=== PATIENT | female | born 1945 | race Caucasian/White ===

== ENCOUNTER 2019-01-28 16:40 | Outpatient (REF) | payer MEDICARE, OTHER, SELFPAY | END 2019-01-28 17:00 | LOC: LBN 16:40 | PROVIDERS: PCP Internal Medicine; Visit Provider Obstetrics & Gynecology Gynecology | DX: R30.0 Dysuria (principal) | CPT/HCPCS: 87077; 87086; 87186 ==

== ENCOUNTER 2021-08-09 02:15 | Outpatient (CLI) | payer MEDICARE, SELFPAY ==
[2021-08-09 11:08] LABS: Source Nasal/Nares
[2021-08-09 15:49] LABS: COVID-19 PCR Negative (Negative)
== END 2021-08-09 02:16 | disposition home or self-care (01) ==
LOC: LBO 02:15
PROVIDERS: PCP Internal Medicine; Visit Provider Ophthalmology
DX: Z20.822 Contact with and (suspected) exposure to COVID-19 (principal); Z01.818 Encounter for other preprocedural examination
CPT/HCPCS: 87635

== ENCOUNTER 2021-08-11 08:12 | Day surgery (SDC) | payer MEDICARE, SELFPAY ==
[2021-08-11] MEDS: Tropicam./Phenyleph. (1/2.5%) 5 ML BTL OD ×3 (08:39→08:52)
[2021-08-11 08:45] VITALS: BP 172/92; PULSE 63; RESP 16; TEMP 36.2; O2SAT 98
--- NOTE | 2021-08-11 09:20 | W.ANESPRE ---
General Info Date of Service Date Performed: 08/11/21 Height: 5 ft 3 in Weight: 66.2 kg Body Mass Index (BMI): 25.8 Surgical Procedure: Operation Date: 08/11/21 10:40 Proposed Procedures Side Surgeon p Cataract Extraction with IOL Implant Right Flash Gomez MD Meds Allergies and Home Medications Allergies Allergy/AdvReac Type Severity Reaction Status Date / Time Iodine and Iodide Containing Allergy Severe Verified 08/11/21 08:43 Produc latex AdvReac Mild Verified 08/11/21 08:43 Home Medication Medication Instructions Recorded citalopram 20 mg PO DAILY tab-cap 07/25/17 levothyroxine [Synthroid] 50 mcg PO DAILY tab-cap 07/25/17 nitrofurantoin macrocrystal 100 mg 100 mg PO DAILY tab-cap 01/01/19 capsule Current Visit Medications: Current Medications Generic Name Dose Route Start Last Admin Trade Name Freq PRN Reason Stop Dose Admin Acetaminophen 1,000 mg 08/11/21 06:00 Acetaminophen 500 Mg Tab PO Q4H PRN PRN Miscellaneous Medication 0 ml 08/11/21 06:00 Prednisolone 1%, Moxifloxacin 0.5%, Nepafenac 0.1% 5ml Btl OD DIRECTED JERRY Miscellaneous Medication 0 ml 08/11/21 06:00 08/11/21 08:52 Tropicam./Phenyleph. (1/2.5%) 5 Ml Btl OD 1 drp DIRECTED JERRY Administration Tetracaine HCl 0 ml 08/11/21 06:00 Tetracaine 0.5% 4 Ml Btl OD DIRECTED JERRY PFSH Active Problems Active Problems: Problem Status Onset Code Cortical cataract of right eye H26.9 Nuclear sclerotic cataract of right eye H25.11 Sensorineural hearing loss of right ear H90.5 Mixed hearing loss of left ear H90.72 Nasal septal spur J34.89 Hx: UTI (urinary tract infection) Z87.440 Prolapse of female pelvic organs N81.9 Urinary incontinence 10/01/17 R32 Sensorineural hearing loss, bilateral 05/27/17 H90.3 Recurrent UTI 10/01/17 N39.0 Chronic dysfunction of both eustachian tubes 05/27/17 H69.83 Abnormal auditory perception of both ears 05/27/17 H93.293 Medical History Medical History Abnormal auditory perception of both ears (05/27/17) Chronic dysfunction of both eustachian tubes (05/27/17) Chronic UTI Depression Hx: UTI (urinary tract infection) Has been on Nitrofurantoin suppression x[place]yrs[place] [facility] [place] for 6mo and stop Nitrofurantoin. Hypothyroid Prolapse of female pelvic organs 01/2018 fitted with #76 ring with support pessary with satisfactory results. 12/2019. Requested referral to [facility]: wants repair of prolapse-hoping it will fix urinary sx. Recurrent UTI (10/01/17) Rx for vaginal Premarin cream per urology Sensorineural hearing loss, bilateral (05/27/17) Urinary incontinence (10/01/17) Overactive bladder/urge. Rx with Mirabergron. 12/2018 symptoms worse 03/2019. [facility] [place]: no incontinence. recommended keeping pessary. Voiding dysfunction difficulty continuing stream. has sensation of. Incomplete emptying. Continent in a.m. with significant urge incontinence by the evening. Surgical History Surgical History Bridges (Incontinence sling) 1996 for stress incontinence. Tobacco Smoking/Tobacco Use Status: Never Alcohol Alcohol Intake: never Substance Use Substance use: Never Substance use type: does not use Prental History History 5 Para Hx # Term Pregnancies 5 Multiple births Hx # Pregnancies Ectopic pregnancies AB induced Hx Number of Living Children AB spontaneous Vital Signs and Lab Results Vital Signs Most Recent Vital Signs in EMR: Most Recent Vital Signs Temp Pulse Resp BP Pulse Ox 36.2 C L 63 16 172/92 H 98 08/11/21 08:45 08/11/21 08:45 08/11/21 08:45 08/11/21 08:45 08/11/21 08:45 Lab Results Blood Type / Crossmatch: No Data to Display Complete Blood Count: No Data to Display Complete Metabolic Panel: No Data to Display Liver Function Panel: No Data to Display Coagulation Panel: No Data to Display Cardiac Panel: No Data to Display Arterial Blood Gas: No Data to Display Venous Blood Gas: No Data to Display Pancreas Panel: No Data to Display Thyroid Panel: No Data to Display Infectious Disease: Coronavirus (COVID-19)(PCR) Negative (Negative) 08/09/21 10:14 08/09/21 Coronavirus 2019 Source Nasal/Nares 08/09/21 10:14 08/09/21 Blood Cultures: No Data to Display Toxicology Panel: No Data to Display Anesthesia Assessment and Plan Anesthesia History Personal History: No History of Anesthesia Complications Family History: No Family History of Anesthesia Complications Exercise Tolerance Exercise Tolerance: Metabolic Equivalents>4 Pertinent Negatives Pertinent Negatives: No Symptoms of GERD Cardiac & Pulmonary Exam Cardiac Exam: Normal S1/S2 Heart Sounds Pulmonary Exam: Clear Bilateral Breath Sounds Airway Exam Known Difficult Airway: No Mallampati Class: 2 Mouth Opening: 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 Patient encouraged to follow up with PCP regarding symptoms. ASA Classification ASA Score: ASA 2 Emergency Case?: No NPO Status NPO Status: NPO Clears >2 hours, Solids >8 hours Anesthesia Plan Resuscitation Status: Full Code Anesthesia Technique: MAC Anesthesia Airway Planned: Natural Airway Pain Management: Surgeon and patient request nerve block Monitors Used: Standard Monitors
[2021-08-11 09:23] VITALS: BMI 25.8
[2021-08-11] MEDS: Tetracaine 0.5% 4 ML BTL OD (10:02)
[2021-08-11] MEDS: Balanced Salt Soln.-PLUS 500 ML BAG (10:03)
[2021-08-11] MEDS: Duovisc Viscoelastic System EACH 1 EACH (10:04)
[2021-08-11] MEDS: Lidocaine 1% Pres-Free 5 ML VIAL (10:04)
[2021-08-11] MEDS: Lidocaine 2% Jelly 6 ML SYR (10:05)
[2021-08-11] MEDS: Povidone-Iodine Ophth 30 ML BTL (10:07)
[2021-08-11 10:24] VITALS: BP 160/87; PULSE 63; RESP 16; TEMP 36.6; O2SAT 96
--- NOTE | 2021-08-11 10:24 | W.PM.DSUDISC ---
Discharge Plan Disposition Patient Disposition: HOME Condition: Good Discharge Details Attending Provider: Flash Gomez Primary Care Provider: Say Mehta Home Meds and New Rx's Prescriptions: No Action citalopram 20 MG tablet 20 mg PO DAILY RF: 0 levothyroxine [Synthroid] 50 MCG tablet 50 mcg PO DAILY RF: 0 nitrofurantoin macrocrystal 100 mg capsule 100 mg PO DAILY RF: 0 Discharge Instructions Stand Alone Forms: Post-op Topical Cataract, Dimple Diggs (DSU) Discharge Orders Discharge Orders: Discharge Order (Routine); Ordered 08/11/21 Ordered By: Flash Gomez DS: Diagnosis Discharge Diagnosis (1) Cortical cataract of right eye: Status: Resolved (2) Nuclear sclerotic cataract of right eye: Status: Resolved
--- NOTE | 2021-08-11 10:25 | ROE_ITS ---
Date of service: 08/11/21 Time of Service: 10:25 Operative Note Operative Note DATE OF PROCEDURE: 08/11/21 PRE-OP DIAGNOSIS: Nuclear cataract, right eye POST-OP DIAGNOSIS: same PROCEDURE: Cataract extraction using phacoemulsification with intraocular lens implant, right eye SURGEON: Flash Gomez ANESTHESIA TYPE: Local By Surgeon and MAC Refer to Anesthesia Record ESTIMATED BLOOD LOSS: 0 PATHOLOGY: none sent COMPLICATIONS: None Patient was transported to: same day Patient's condition: stable Implants: Hernando & Hernando/BRANDON Tecnis [id number] Indications: Progressive visual loss due to cataract, right eye Procedure Description: CATARACT SURGERY OPERATIVE REPORT PREOPERATIVE DIAGNOSIS: 1. Nuclear cataract, right eye 2. Status post myopic LASIK POSTOPERATIVE DIAGNOSIS: Same OPERATION: 1. Cataract extraction using phacoemulsification with posterior chamber intraocular lens implant, right eye. IOL: IOL Retort Furnace Helper/Model: Hernando & Hernando / BRANDON Tecnis [id number] IOL Power: + 24.5 diopters IOL Serial Number: [id number] Optic Diameter: 6.0mm Haptic/Overall Diameter: 13.0mm PHACO INFO: Stephon Rhythm Pharmaceuticalsurion Vision System with OZil and Active Fluidics Cumulative Dispersed Energy (CDE): 5.31 seconds SURGEON: Flash Gomez MD, SAMANTHA ANESTHESIA: Monitored Anesthesia Care (MAC), with local sub-tenon's anesthetic infiltration COMPLICATIONS: None SPECIMENS: None INDICATIONS FOR PROCEDURE: The patient is a 76-year-old lady who has previously undergone myopic LASIK approximately 15 years ago. She has now developed a symptomatic nuclear and cortical cataract of the right eye. The option of cataract surgery was the patient and she wished to proceed. PROCEDURE: The correct surgical eye was identified and marked as the right eye and the pupil was dilated in the preoperative area using mydriatics and cycloplegics. The dilated pupil size was 7.0 mm. She elected to proceed without oral sedation. The patient was brought to the operating room where cardiopulmonary monitoring was instituted and surgical time-out was performed, confirming the correct operative eye and IOL power. Topical anesthesia was administered and ophthalmic povidone-iodine 5% was instilled into the conjunctival fornices. Lidocaine gel was applied to the cornea and the godwin-ocular area was prepped with sterile water and draped in the usual sterile fashion for intraocular surgery, including an aperture drape. The patient has a iodine allergy, in the form of skin rash, severe, with previous skin prep with Betadine. However, she tolerated the topical 5% Betadine applied to the eye. A Tegaderm transparent film dressing was cut in half and used to cover the lashes and lid margins. Care was taken to sequester the lashes and lid margins under the Tegaderm dressing. A lid speculum was placed between the lids of the operative eye and the [employer] operating microscope was maneuvered into position. Kojo scissors were then used to make a conjunctival buttonhole approximately 6mm posterior to the limbus in the inferonasal quadrant. Blunt dissection was carried out to expose bare sclera, and a blunt-tipped sub-tenon?s anesthesia cannula was introduced and passed posteriorly along the globe where non- preserved plain lidocaine was injected into posterior sub-Tenon?s space. A sideport knife was used to make a paracentesis port inferotemporally. Intraocular phenylephrine/lidocaine was injected into the anterior chamber. The anterior chamber was filled with viscoelastic. A 2.4mm keratome knife was used to create a half-thickness groove at the limbus and then to construct a three- plane near-clear corneal tunnel extending 2.0mm into clear cornea superiortemporally. A flap was raised on the anterior capsule and capsulorhexis forceps were used to complete a continuous curvilinear capsulorhexis of 5.5 mm. Balanced salt solution was then used to perform cortical cleaving hydrodissection and nuclear hydrodelineation until the lens could be freely rotated within the capsular bag. The lens nucleus was then disassembled and removed within the capsular bag and iris plane using phacoemulsification. Residual cortical material was removed using the I/A handpiece. The posterior capsule was carefully polished to remove as much residual lens epithelial cells as safely possible. The capsular bag was then inflated and the anterior chamber deepened with viscoelastic. The lens implant described above was inserted into the capsular bag using the BRANDON False Pass Injector. A Kuglen hook was used to dial the IOL into position. Residual viscoelastic was then removed first from posterior to the IOL, then from the anterior chamber using the I/A handpiece. The lens implant was noted to center nicely within the capsular bag. The incisions were stromally hydrated, and the anterior chamber was reformed using BSS. Then 0.5cc of moxifloxacin 1.0mg/ml were injected into the capsular bag and anterior chamber. The incisions were checked with a Weck spear and found to be secure. Several drops of ophthalmic povidone-iodine 5% were then applied to the eye followed by two drops of Imprimis combination prednisolone/moxifloxacin/nepafenac solution. The drapes were removed and a clear plastic protective eye shield was placed over the eye. The patient was then returned to Same Day Surgery in stable condition.
--- NOTE | 2021-08-11 10:45 | W.ANESPOSTOP ---
Postoperative Evaluation Date, Time and Location Date Performed: 08/11/21 Time Performed: 10:25 Patient Location: Day Surgery Unit Vital Signs Most Recent Imported Vital Signs: Most Recent Vital Signs Temp Pulse Resp BP Pulse Ox 36.6 C 63 16 160/87 H 96 08/11/21 10:24 08/11/21 10:24 08/11/21 10:24 08/11/21 10:24 08/11/21 10:24 Pain Score Most Recent Pain Score: Most Recent Pain Score Pain Level 0 08/11/21 10:24 Assessment Mental Status: Awake (Alert & Oriented to Patient Baseline) Airway and Respiratory Function: Patent airway with normal (patient baseline) respiratory exam Cardiovascular Function: Hemodynamically Stable Hydration Status: Adequately Hydrated Nausea & Vomiting: No Nausea or Vomiting Pain: Pt. Denies Any Pain Peripheral Nerve Block: Patient did not receive a nerve block
== END 2021-08-11 10:49 | disposition home or self-care (01) ==
PROVIDERS: PCP Internal Medicine; Visit Provider Ophthalmology
PROC: (CPT 66984; principal; 2021-08-11 10:30)
DX: H25.11 Age-related nuclear cataract, right eye (principal)
CPT/HCPCS: 66984; V2632

== ENCOUNTER 2022-05-28 09:31 | Day surgery (SDC) | payer MEDICARE, SELFPAY ==
--- NOTE | 2022-05-28 08:26 | W.ANESPRE ---
General Info Date of Service Date Performed: 05/28/22 Height: 5 ft 3 in Weight: 66.2 kg Body Mass Index (BMI): 25.8 Surgical Procedure: Operation Date: 05/28/22 12:40 Proposed Procedure Side Surgeon p Cataract Extraction with IOL Implant Left Flash Gomez MD Meds Allergies and Home Medications Allergies Allergy/AdvReac Type Severity Reaction Status Date / Time Iodine and Iodide Containing Allergy Severe pt. states Verified 05/28/22 10:09 Produc massive rash and I couldn't breathe latex AdvReac Mild Skin Rash Verified 05/28/22 10:09 Home Medication Medication Instructions Recorded citalopram 20 mg tablet 20 mg PO DAILY 07/25/17 levothyroxine 50 mcg tablet 50 mcg PO DAILY 07/25/17 (Synthroid) ranitidine HCl 150 mg tablet 20 mg PRN 05/28/22 Current Visit Medications: Current Medications Generic Name Dose Route Start Last Admin Trade Name Freq PRN Reason Stop Dose Admin Acetaminophen 1,000 mg 05/28/22 06:00 Acetaminophen 500 Mg Tab PO Q4H PRN PRN Miscellaneous Medication 0 ml 05/28/22 06:00 Prednisolone 1%, Moxifloxacin 0.5%, Nepafenac 0.1% 5ml Btl OS DIRECTED JERRY Miscellaneous Medication 0 ml 05/28/22 06:00 Tropicam./Phenyleph. (1/2.5%) 5 Ml Btl OS DIRECTED JERRY Tetracaine HCl 0 ml 05/28/22 06:00 Tetracaine 0.5% 4 Ml Btl OS DIRECTED JERRY PFSH Active Problems Active Problems: Problem Status Onset Code Cortical cataract of right eye H26.9 Nuclear sclerotic cataract of right eye H25.11 Sensorineural hearing loss of right ear H90.5 Mixed hearing loss of left ear H90.72 Nasal septal spur J34.89 Hx: UTI (urinary tract infection) Z87.440 Prolapse of female pelvic organs N81.9 Urinary incontinence 10/01/17 R32 Sensorineural hearing loss, bilateral 05/27/17 H90.3 Recurrent UTI 10/01/17 N39.0 Chronic dysfunction of both eustachian tubes 05/27/17 H69.83 Abnormal auditory perception of both ears 05/27/17 H93.293 Medical History Medical History Chronic UTI Depression Hypothyroid Voiding dysfunction difficulty continuing stream. has sensation of. Incomplete emptying. Continent in a.m. with significant urge incontinence by the evening. Surgical History Surgical History Bridges (Incontinence sling) 1996 for stress incontinence. Tobacco Smoking/Tobacco Use Status: Never Alcohol Alcohol Intake: never Substance Use Substance use: Never Substance use type: does not use Prental History History 5 Para Hx # Term Pregnancies 5 Multiple births Hx # Pregnancies Ectopic pregnancies AB induced Hx Number of Living Children AB spontaneous Vital Signs and Lab Results Lab Results Blood Type / Crossmatch: No Data to Display Complete Blood Count: No Data to Display Complete Metabolic Panel: No Data to Display Liver Function Panel: No Data to Display Coagulation Panel: No Data to Display Cardiac Panel: No Data to Display Arterial Blood Gas: No Data to Display Venous Blood Gas: No Data to Display Pancreas Panel: No Data to Display Thyroid Panel: No Data to Display Infectious Disease: No Data to Display Blood Cultures: No Data to Display Toxicology Panel: No Data to Display Anesthesia Assessment and Plan Anesthesia History Personal History: No History of Anesthesia Complications Family History: No Family History of Anesthesia Complications Exercise Tolerance Exercise Tolerance: Metabolic Equivalents>4 Pertinent Negatives Pertinent Negatives: No Symptoms of GERD, No Major Cardiovascular Symptoms or Complaints, No Major Pulmonary Symptoms or Complaints and No History of CVA/TIA Cardiac & Pulmonary Exam Cardiac Exam: Normal S1/S2 Heart Sounds Pulmonary Exam: Clear Bilateral Breath Sounds Implantable Cardiac Device Does patient have a Pacemaker or an ICD?: No Airway Exam Known Difficult Airway: No Mallampati Class: 3 Mouth Opening: 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 Patient encouraged to follow up with PCP regarding symptoms. Permanent dentures ASA Classification ASA Score: ASA 2 Emergency Case?: No NPO Status NPO Status: NPO Clears >2 hours, Solids >8 hours Anesthesia Plan Resuscitation Status: Full Code Anesthesia Technique: MAC Anesthesia Airway Planned: Natural Airway Monitors Used: Standard Monitors
[2022-05-28] MEDS: Tropicam./Phenyleph. (1/2.5%) 5 ML BTL OS ×3 (10:15→10:34)
[2022-05-28 10:17] VITALS: BP 142/87; PULSE 75; RESP 19; TEMP 36; O2SAT 97
[2022-05-28 10:31] VITALS: BMI 25.8
[2022-05-28] MEDS: Tetracaine 0.5% 4 ML BTL OS (11:28)
[2022-05-28] MEDS: Balanced Salt Soln.-PLUS 500 ML BAG (11:29)
[2022-05-28] MEDS: Duovisc Viscoelastic System EACH 1 EACH (11:30)
[2022-05-28] MEDS: Lidocaine 2% Jelly 6 ML SYR (11:31)
[2022-05-28] MEDS: Povidone-Iodine Ophth 30 ML BTL (11:33)
[2022-05-28 11:43] VITALS: BP 151/80; PULSE 66; RESP 16; TEMP 36.3; O2SAT 97
--- NOTE | 2022-05-28 11:44 | W.PM.DSUDISC ---
Discharge Plan Disposition Patient Disposition: HOME Condition: Good Discharge Details Attending Provider: Flash Gomez Primary Care Provider: aSy Mehta Home Meds and New Rx's Prescriptions: No Action citalopram 20 MG tablet 20 mg PO DAILY levothyroxine [Synthroid] 50 MCG tablet 50 mcg PO DAILY ranitidine HCl [Zantac] 150 mg Tablet 20 mg PRN Discharge Instructions Stand Alone Forms: Post-op Topical Cataract, Dimple Diggs (DSU) Discharge Orders Discharge Orders: Discharge Order (Routine); Ordered 05/28/22 Ordered By: Flash Gomez DS: Diagnosis Discharge Diagnosis (1) Cortical cataract of left eye: Status: Resolved (2) Nuclear sclerotic cataract of left eye: Status: Resolved
--- NOTE | 2022-05-28 11:47 | W.PM.OP ---
Date of service: 05/28/22 Time of Service: 11:47 Operative Note Operative Note DATE OF PROCEDURE: 05/28/22 PRE-OP DIAGNOSIS: Nuclear/cortical cataract, left eye POST-OP DIAGNOSIS: same PROCEDURE: Cataract extraction using phacoemulsification with intraocular lens implant, left eye SURGEON: Flash Gomez ANESTHESIA TYPE: Local By Surgeon and MAC Refer to Anesthesia Record PATHOLOGY: none sent COMPLICATIONS: None Patient was transported to: same day Patient's condition: stable Implants: Hernando and Hernando / [employer] Tecnis [id number] Indications: Progressive decreased vision due to cataract, left eye Procedure Description: CATARACT SURGERY OPERATIVE REPORT PREOPERATIVE DIAGNOSIS: 1. Nuclear/cortical cataract, left eye POSTOPERATIVE DIAGNOSIS: Same OPERATION: 1. Cataract extraction using phacoemulsification with posterior chamber intraocular lens implant, left eye. IOL: IOL Machine Set Up Technician/Model: Hernando & Hernando / BRANDON Tecnis [id number] IOL Power: + 24.5 diopters IOL Serial Number: [id number] Optic Diameter: 6.0 mm Haptic/Overall Diameter: 13.0 mm PHACO INFO: StephonOmbudon Vision System with OZil and Active Fluidics Cumulative Dispersed Energy (CDE): 2.95 seconds SURGEON: Flash Gomez MD, SAMANTHA ANESTHESIA: Monitored A [facility] (MAC), with local sub-tenon's anesthetic infiltration COMPLICATIONS: None SPECIMENS: None INDICATIONS FOR PROCEDURE: The patient is a 77-year-old lady with history of having undergone myopic LASEK in both eyes. She has now developed symptomatic nuclear/cortical cataract in both eyes. She has already undergone cataract surgery in the right eye and is doing well postoperatively. She now presents for cataract surgery in the left eye. PROCEDURE: The correct surgical eye was identified and marked as the left eye and the pupil was dilated in the preoperative area using mydriatics and cycloplegics. The dilated pupil size was 7.0 mm. The patient elected to proceed without oral sedation. The patient was brought to the operating room where cardiopulmonary monitoring was instituted and surgical time-out was performed, confirming the correct operative eye and IOL power. Topical anesthesia was administered and ophthalmic povidone-iodine 5% was instilled into the conjunctival fornices. Lidocaine gel was applied to the cornea and the godwin-ocular area was prepped with Betadine 10% solution and draped in the usual sterile fashion for intraocular surgery, including an aperture drape. A Tegaderm transparent film dressing was cut in half and used to cover the lashes and lid margins. Care was taken to sequester the lashes and lid margins under the Tegaderm dressing. A lid speculum was placed between the lids of the operative eye and the Stephon [employer] [place] operating microscope was maneuvered into position. Kojo scissors were then used to make a conjunctival buttonhole approximately 6mm posterior to the limbus in the inferonasal quadrant. Blunt dissection was carried out to expose bare sclera, and a blunt-tipped sub-tenon?s anesthesia cannula was introduced and passed posteriorly along the globe where non-preserved plain lidocaine was injected into posterior sub-Tenon?s space. A sideport knife was used to make a paracentesis port superiorly/superiortemporally. Intraocular phenylephrine/lidocaine was injected int the anterior chamber.. The anterior chamber was filled with viscoelastic. A keratome knife was used to construct a 2-plane near-clear corneal tunnel extending 2.0mm into clear cornea temporally. A flap was raised on the anterior capsule and capsulorhexis forceps were used to complete a continuous curvilinear capsulorhexis of 5.0 mm. Balanced salt solution was then used to perform cortical cleaving hydrodissection and nuclear hydrodelineation until the lens could be freely rotated within the capsular bag. The lens nucleus was then disassembled and removed within the capsular bag and iris plane using phacoemulsification. Residual cortical material was removed using the 45-degree angled silicone I/A tip with 0.3mm port. The posterior capsule was carefully polished to remove as much residual lens epithelial cells as safely possible. The capsular bag was then inflated and the anterior chamber deepened with viscoelastic. The lens implant described above was inserted into the capsular bag using the BRANDON [place] Injector. A Kuglen hook was used to dial the IOL into position. Residual viscoelastic was then removed first from posterior to the IOL, then from the anterior chamber using the I/A handpiece. The lens implant was noted to center nicely within the capsular bag. The incisions were stromally hydrated, and the anterior chamber was reformed using BSS. Then 0.5cc of moxifloxacin 1.0mg/ml were injected into the capsular bag and anterior chamber. The incisions were checked with a Weck spear and found to be secure. Several drops of ophthalmic povidone-iodine 5% were then applied to the eye followed by two drops of Imprimis combination prednisolone/moxifloxacin/nepafenac solution. The drapes were removed and a clear plastic protective eye shield was placed over the eye. The patient was then returned to Same Day Surgery in stable condition.
--- NOTE | 2022-05-28 13:13 | W.ANESPOSTOP ---
Postoperative Evaluation Date, Time and Location Date Performed: 05/28/22 Time Performed: 12:13 Patient Location: Day Surgery Unit Vital Signs Most Recent Imported Vital Signs: Most Recent Vital Signs Temp Pulse Resp BP Pulse Ox 36.3 C L 66 16 151/80 H 97 05/28/22 11:43 05/28/22 11:43 05/28/22 11:43 05/28/22 11:43 05/28/22 11:43 Pain Score Most Recent Pain Score: Most Recent Pain Score Pain Level 0 05/28/22 11:43 Assessment Mental Status: Awake (Alert & Oriented to Patient Baseline) Airway and Respiratory Function: Patent airway with normal (patient baseline) respiratory exam Cardiovascular Function: Hemodynamically Stable Hydration Status: Adequately Hydrated Nausea & Vomiting: No Nausea or Vomiting Pain: Pt. Denies Any Pain Peripheral Nerve Block: Patient did not receive a nerve block
== END 2022-05-28 12:08 | disposition home or self-care (01) ==
LOC: SUR 09:32
PROVIDERS: PCP Internal Medicine; Visit Provider Ophthalmology
PROC: (CPT 66984; principal; 2022-05-28 12:30)
DX: H25.12 Age-related nuclear cataract, left eye (principal)
CPT/HCPCS: 66984; V2632